=== PATIENT | male | born 1985 | race Caucasian/White ===

== ENCOUNTER 2018-10-31 17:48 | Emergency (ER) | payer BC, OTHER | END 2018-10-31 18:25 | disposition home or self-care (01) | LOC: BURERS 17:48 | DX: I83.891 Varicose veins of right lower extremity with other complications (principal); R58 Hemorrhage, not elsewhere classified; I10 Essential (primary) hypertension; F17.290 Nicotine dependence, other tobacco product, uncomplicated | CPT/HCPCS: 99283 ==

== ENCOUNTER 2025-02-24 23:54 | Emergency (ER) | payer BC, SELFPAY | END 2025-02-25 00:28 | disposition home or self-care (01) | LOC: BURERS 23:54 | DX: R00.2 Palpitations (principal); I10 Essential (primary) hypertension; Z87.891 Personal history of nicotine dependence | CPT/HCPCS: 99284 ==